=== PATIENT | male | born 1975 | race Caucasian/White ===

== ENCOUNTER 2016-09-17 01:41 | Emergency (ER) | payer SELFPAY ==
[~2016-09-17] VITALS: Ht 185.4 cm; Wt 83.9 kg
[~2016-09-17 01:41] MED LIST: ALPR0.25
[2016-09-17 02:10] LABS: Urine Bilirubin Negative (Negative); Urine Blood TRACE /uL (Negative); Urine Color Yellow (Yellow); Urine Glucose Normal (Normal); Urine Granular Cast FEW /lpf (0); Urine Ketone Negative (Negative); Urine Mucus FEW (None Seen); Urine Nitrite Negative (Negative); Urine RBC 1 /hpf (0 - 3); Urine Sperm PRESENT /hpf (None Seen); Urine Squamous Epithelial Cell FEW /hpf (<5); Urine Urobilinogen Normal (Negative); Urine pH 5.5 (5.0-8.0)
[2016-09-17 02:11] LABS: Basophils # (auto) 0 uL; Basophils % (auto) 0.6 % (0.0-2.0); CONDITION Y; Eosinophils # (auto) 0.1 uL; Eosinophils % (auto) 1.8 % (0.0-7.0); Hematocrit 49.2 % (41.0-53.0); Hemoglobin 17.1 g/dL (13.5-17.5); Lymphocytes # (auto) 2.3 uL; Lymphocytes % (auto) 28.7 % (10.0-50.0); Mean Corpuscular Hemoglobin 32.6 pg (28.0-32.0); Mean Corpuscular Hgb Conc. 34.8 g/dL (32.0-36.0); Mean Corpuscular Volume 93.8 fL (80.0-100.0); Mean Platelet Volume 7.4 fL (7.4-10.4); Monocytes # (auto) 0.8 uL; Monocytes % (auto) 10.2 % (0.0-12.0); Neutrophils # (auto) 4.6 uL; Neutrophils % (auto) 58.7 % (37.0-80.0); Platelet Count (auto) 340 10^3/uL (140-450); Red Cell Distribution Width 13.4 % (11.6-16.0); White Blood Cell 7.9 10^3/uL (4.4-10.8)
[2016-09-17 02:32] LABS: INR 0.94 (0.9-1.15); Partial Thromboplastin Time 33.2 sec (22.64-33.71); Prothrombin Time 10.2 sec (9.37-12.3)
[2016-09-17 02:37] LABS: Albumin 3.9 g/dL (3.4-5.0); Anion Gap 12 (5-15); Aspartate Aminotransferase 36 U/L (15-37); BUN/Creatinine Ratio 11.5; Blood Urea Nitrogen 9 mg/dL (7-18); Calcium 8.2 mg/dL (8.5-10.1); Carbon Dioxide 20 mmol/L (21-32); Chloride 112 mmol/L (98-107); GFR African American 141 mL/min; GFR Non-African American 117 mL/min; Glucose 102 mg/dL (74-106); Potassium 3.9 mmol/L (3.5-5.1); Sodium 144 mmol/L (136-145)
[2016-09-17 02:38] LABS: B-Type Natriuretic Peptide < 5.0 pg/mL (0-100); Temperature: 22.4 C (20.0-25.0)
[2016-09-17 02:44] LABS: Alkaline Phosphatase 78 U/L (45-117); Bilirubin, Total 0.3 mg/dL (0.2-1.0); Total Protein 8.3 g/dL (6.4-8.2)
[2016-09-17 07:15] VITALS: BP 123/76
[2016-09-17] MEDS ORDERED: SODIUM CHLORIDE 0.9% 1,000 ML IV ONE (07:42)
[2016-09-17] MEDS ORDERED: IPRATROPIUM BROM 0.5 MG/2.5ML INH SOL NEB ONE (07:45)
[2016-09-17] MEDS ORDERED: THIAMINE HCL 100 MG/ML 2ML VIAL IV ONE (07:45)
[2016-09-17] MEDS ORDERED: ALBUTEROL SULF 2.5 MG/0.5ML(0.5%) NEB SOLN NEB ONE (07:45)
[2016-09-17] MEDS ORDERED: KETOROLAC TROMETH 60MG/2ML VIAL IM ONE (07:45)
== END 2016-09-17 10:19 | disposition home or self-care (01) ==
LOC: ER 01:42
DX: F17.210 Nicotine dependence, cigarettes, uncomplicated (principal); F10.229 Alcohol dependence with intoxication, unspecified; Y90.9 Presence of alcohol in blood, level not specified; R06.02 Shortness of breath; R05 Cough
CPT/HCPCS: 36415; 71010; 80053; 80307; 80320; 81001; 83735; 83880; 84484; 85025; 85610; 85730; 93005; 94640; 96361; 96374; 99285; J3411; J7030

== ENCOUNTER 2016-10-04 13:08 | Emergency (ER) | payer SELFPAY ==
[~2016-10-04] VITALS: Ht 182.9 cm; Wt 113.4 kg
[2016-10-04] MEDS ORDERED: SODIUM CHLORIDE 0.9% 1,000 ML IV ONE (13:17)
[2016-10-04] MEDS ORDERED: LORazepam 2MG/ML-1ML VIAL IV ONE (13:30)
[2016-10-04 14:26] LABS: Albumin 3.8 g/dL (3.4-5.0); Calcium 8.1 mg/dL (8.5-10.1); Potassium 3.8 mmol/L (3.5-5.1)
[2016-10-04 14:28] LABS: BUN/Creatinine Ratio 10.8
[2016-10-04 14:30] LABS: Basophils # (auto) 0 uL; Basophils % (auto) 0.5 % (0.0-2.0); CONDITION Y; Eosinophils # (auto) 0.1 uL; Hematocrit 47.3 % (41.0-53.0); Hemoglobin 16.4 g/dL (13.5-17.5); Lymphocytes # (auto) 1.5 uL; Lymphocytes % (auto) 23.1 % (10.0-50.0); Mean Corpuscular Hemoglobin 32.8 pg (28.0-32.0); Mean Corpuscular Hgb Conc. 34.6 g/dL (32.0-36.0); Mean Corpuscular Volume 94.6 fL (80.0-100.0); Mean Platelet Volume 7.7 fL (7.4-10.4); Monocytes # (auto) 0.4 uL; Monocytes % (auto) 5.4 % (0.0-12.0); Neutrophils # (auto) 4.5 uL; Platelet Count (auto) 211 10^3/uL (140-450); Red Cell Distribution Width 14.1 % (11.6-16.0); White Blood Cell 6.6 10^3/uL (4.4-10.8)
[2016-10-04 14:31] LABS: Bilirubin, Total 0.6 mg/dL (0.2-1.0); Total Protein 7.7 g/dL (6.4-8.2)
[2016-10-04 21:01] VITALS: BP 122/68
[2016-10-04] MEDS ORDERED: THIAMINE INJ 100 MG, MULTIPLE VITAMIN 10 ML, FOLIC ACID 1 MG, MAGNESIUM SULF SDV 50% 8 ... IV SCH ×5 (22:00)
== END 2016-10-04 21:00 | disposition home or self-care (01) ==
LOC: EDBD 13:08 → ER 13:15
DX: F10.129 Alcohol abuse with intoxication, unspecified (principal); M54.9 Dorsalgia, unspecified; M54.2 Cervicalgia; F17.210 Nicotine dependence, cigarettes, uncomplicated; R42 Dizziness and giddiness; Z88.0 Allergy status to penicillin; Z88.1 Allergy status to other antibiotic agents; Z79.899 Other long term (current) drug therapy; Z90.49 Acquired absence of other specified parts of digestive tract; W18.39XA Other fall on same level, initial encounter; Y93.89 Activity, other specified; Y92.89 Other specified places as the place of occurrence of the external cause; Y99.8 Other external cause status
CPT/HCPCS: 36415; 70450; 72125; 80053; 80320; 85025; 94761; 96361; 96374; 99285; J2060; J3411; J3475; J7030

== ENCOUNTER 2017-10-28 00:42 | Emergency (ER) | payer MEDICAID ==
[~2017-10-28] VITALS: Ht 182.9 cm; Wt 95.3 kg
[2017-10-28 01:31] LABS: Basophils # (auto) 0.1 uL; Nucleated Red Blood Cells % 0.1 %
[2017-10-28 01:32] LABS: Basophils % (auto) 0.5 % (0.0-2.0); Eosinophils # (auto) 0.1 uL; Eosinophils % (auto) 0.5 % (0.0-7.0); Hematocrit 53.6 % (41.0-53.0); Hemoglobin 18.7 g/dL (13.5-17.5); Lymphocytes # (auto) 2.3 uL; Lymphocytes % (auto) 18.5 % (10.0-50.0); Mean Corpuscular Hemoglobin 32.2 pg (28.0-32.0); Mean Corpuscular Hgb Conc. 34.9 g/dL (32.0-36.0); Mean Corpuscular Volume 92.1 fL (80.0-100.0); Monocytes # (auto) 0.5 uL; Monocytes % (auto) 3.7 % (0.0-12.0); Neutrophils # (auto) 9.5 uL; Neutrophils % (auto) 76.8 % (37.0-80.0); Platelet Count (auto) 307 10^3/uL (140-450); Red Blood Cells 5.82 10^6/uL (4.5-5.90); Red Cell Distribution Width 13.5 % (11.8-14.3); White Blood Cell 12.3 10^3/uL (4.4-10.8)
[2017-10-28 01:48] LABS: Albumin 4.3 g/dL (3.4-5.0); BUN/Creatinine Ratio 14.3; Potassium 4.1 mmol/L (3.5-5.1)
[2017-10-28 01:52] LABS: Bilirubin, Total 0.5 mg/dL (0.2-1.0); Total Protein 8.8 g/dL (6.4-8.2)
[2017-10-28] MEDS ORDERED: SODIUM CHLORIDE 0.9% 3,000 ML IV ONE ×2 (02:15→03:15)
[2017-10-28] MEDS ORDERED: LORazepam 2MG/ML-1ML VIAL IV ONE (02:15)
[2017-10-28] MEDS ORDERED: SODIUM CHLORIDE 0.9% 1,000 ML IV ONE (05:45)
[2017-10-28] MEDS ORDERED: THIAMINE 100mg/ml INJ (200mg/2ml VIAL) IV ONE (08:30)
[2017-10-28] MEDS ORDERED: chlordiazePOXIDE HCL 25 MG CAP PO ONE (09:30)
[2017-10-28 10:08] VITALS: BP 98/60
== END 2017-10-28 10:55 | disposition home or self-care (01) ==
LOC: EDBD 00:42 → ER 00:46
DX: R41.82 Altered mental status, unspecified (principal); F10.120 Alcohol abuse with intoxication, uncomplicated; F17.210 Nicotine dependence, cigarettes, uncomplicated; Z90.49 Acquired absence of other specified parts of digestive tract; Z88.0 Allergy status to penicillin; Z88.1 Allergy status to other antibiotic agents
CPT/HCPCS: 36415; 80053; 80320; 82962; 85025; 96361; 96374; 96375; 99285; J2060; J3411; J7030

== ENCOUNTER 2017-11-01 14:52 | Emergency (ER) | payer MEDICAID ==
[~2017-11-01] VITALS: Ht 182.9 cm; Wt 90.7 kg
[2017-11-01] MEDS ORDERED: SODIUM CHLORIDE 0.9% 1,000 ML IVB ONE (15:30)
[2017-11-01] MEDS ORDERED: FAMOTIDINE 20 MG TAB PO ONE (15:30)
[2017-11-01] MEDS ORDERED: ALUM & MAG HYDROX-SIMETH LIQ(MAALOX) 30 ML PO ONE (15:30)
[2017-11-01] MEDS ORDERED: LORazepam 2MG/ML-1ML VIAL IV ONE (15:30)
[2017-11-01] MEDS ORDERED: DONNATAL 5ml ORAL Elix (BELLADONNA ALK-PHENOBARB) PO ONE (15:30)
[2017-11-01] MEDS ORDERED: PANTOPRAZOLE 40 MG/10 ML VIAL IV ONE (15:30)
[2017-11-01] MEDS ORDERED: ONDANSETRON HCL 4 MG/2 ML VIAL IV ONE (15:30)
[2017-11-01] MEDS ORDERED: THIAMINE INJ 100 MG, MULTIPLE VITAMIN 10 ML, FOLIC ACID 1 MG, MAGNESIUM SULF SDV 50% 8 ... IV SCH ×5 (17:00)
[2017-11-01 17:38] LABS: Basophils # (auto) 0.1 uL; Basophils % (auto) 1.1 % (0.0-2.0); Eosinophils # (auto) 0.3 uL; Eosinophils % (auto) 5.3 % (0.0-7.0); Hematocrit 51.9 % (41.0-53.0); Hemoglobin 17.6 g/dL (13.5-17.5); Lymphocytes # (auto) 1.5 uL; Lymphocytes % (auto) 31.5 % (10.0-50.0); Mean Corpuscular Hgb Conc. 33.9 g/dL (32.0-36.0); Mean Corpuscular Volume 94.3 fL (80.0-100.0); Monocytes # (auto) 0.2 uL; Monocytes % (auto) 5.2 % (0.0-12.0); Neutrophils # (auto) 2.7 uL; Neutrophils % (auto) 56.9 % (37.0-80.0); Nucleated Red Blood Cells % 0.2 %; Platelet Count (auto) 206 10^3/uL (140-450); Red Cell Distribution Width 13.6 % (11.8-14.3); White Blood Cell 4.7 10^3/uL (4.4-10.8)
[2017-11-01 18:29] LABS: Albumin 3.8 g/dL (3.4-5.0); Bilirubin, Total 0.3 mg/dL (0.2-1.0); Calcium 7.9 mg/dL (8.5-10.1); Magnesium 2.5 mg/dL (1.6-2.6); Total Protein 7.8 g/dL (6.4-8.2)
[2017-11-01 18:32] LABS: Urine WBC None Seen /hpf (0 - 3)
[2017-11-01 18:38] LABS: BUN/Creatinine Ratio 7.4
[2017-11-01 18:39] LABS: Urine Bacteria NONE SEEN /hpf (None Seen); Urine Blood Negative /uL (Negative); Urine Specific Gravity 1.005 (1.001-1.035)
[2017-11-01] MEDS ORDERED: SODIUM CHLORIDE 0.9% 1,000 ML IV ONE (18:45)
[2017-11-01 18:56] LABS: Amphetamine Screen, Urine NEGATIVE (NEGATIVE); Barbiturate Scree,Urine NEGATIVE (NEGATIVE); Benzodiazephine Screen, Urine NEGATIVE (NEGATIVE); Cannabinoid Screen, Urine NEGATIVE (NEGATIVE); Cocaine Screen, Urine NEGATIVE (NEGATIVE); Phencyclidine Screen, Urine NEGATIVE (NEGATIVE)
[2017-11-01 19:10] LABS: Opiate Scree,Urine NEGATIVE (NEGATIVE)
[2017-11-01 20:45] VITALS: BP 143/95
[2017-11-01] MEDS ORDERED: SODIUM CHLORIDE 0.9% 500 ML IV ONE (22:00)
[2017-11-01] MEDS ORDERED: LORazepam 0.5 MG TAB PO ONE (23:45)
[2017-11-02] MEDS ORDERED: LORazepam 0.5 MG TAB PO ONE (00:30)
== END 2017-11-02 00:25 | disposition home or self-care (01) ==
LOC: EDBD 14:52 → ER 14:52
DX: F10.129 Alcohol abuse with intoxication, unspecified (principal); E86.0 Dehydration; F41.1 Generalized anxiety disorder; F17.210 Nicotine dependence, cigarettes, uncomplicated
CPT/HCPCS: 36415; 51702; 71045; 80053; 80307; 80320; 81001; 83690; 83735; 85025; 93005; 96365; 96366; 96375; 99285; C9113; J2060; J2405; J3411; J3475; J7030; 96361

== ENCOUNTER 2018-09-29 22:41 | Emergency (ER) | payer SELFPAY ==
[~2018-09-29] VITALS: Ht 190.5 cm; Wt 104.3 kg
[2018-09-29] MEDS ORDERED: SODIUM CHLORIDE 0.9% 1,000 ML IV ONE (23:15)
[2018-09-29 23:36] LABS: Monocytes # (auto) 0.4 uL; Neutrophils # (auto) 4.3 uL; Nucleated Red Blood Cells % 0.2 %
[2018-09-29 23:37] LABS: Basophils # (auto) 0 uL; Basophils % (auto) 0.6 % (0.0-2.0); Eosinophils # (auto) 0.3 uL; Eosinophils % (auto) 3.3 % (0.0-7.0); Hematocrit 50.6 % (41.0-53.0); Hemoglobin 17.9 g/dL (13.5-17.5); Lymphocytes # (auto) 2.8 uL; Lymphocytes % (auto) 35.6 % (10.0-50.0); Mean Corpuscular Hemoglobin 32.4 pg (28.0-32.0); Mean Corpuscular Hgb Conc. 35.3 g/dL (32.0-36.0); Monocytes % (auto) 5.8 % (0.0-12.0); Neutrophils % (auto) 54.7 % (37.0-80.0); Platelet Count (auto) 236 10^3/uL (140-450); Red Cell Distribution Width 14.6 % (11.8-14.3); White Blood Cell 7.8 10^3/uL (4.4-10.8)
[2018-09-29] MEDS ORDERED: ONDANSETRON HCL 4 MG/2 ML VIAL IV ONE (23:45)
[2018-09-29] MEDS ORDERED: LORazepam 2MG/ML-1ML VIAL IV ONE (23:45)
[2018-09-29] MEDS: FOLIC ACID 1 MG, MULTIPLE VITAMIN 10 ML, MAGNESIUM SULF SDV 50% 8 MEQ, THIAMINE INJ 100... INJ SCH ×5 (23:51)
[2018-09-29 23:55] LABS: Salicylate 1.8 mg/dL (2.8-20.0)
[2018-09-29 23:56] LABS: Acetaminophen < 2.0 ug/mL (10-30)
[2018-09-29 23:57] LABS: Albumin 3.9 g/dL (3.4-5.0); BUN/Creatinine Ratio 8.4; Magnesium 2.4 mg/dL (1.6-2.6); Potassium 3.4 mmol/L (3.5-5.1)
[2018-09-30] LABS: Bilirubin, Total 0.4 mg/dL (0.2-1.0); Total Protein 8.2 g/dL (6.4-8.2)
[2018-09-30 00:18] LABS: Blood Alcohol 446.5 mg/dL (0-5)
[2018-09-30] MEDS ORDERED: SODIUM CHLORIDE 0.9% 1,000 ML IV ONE ×2 (01:45→05:45)
[2018-09-30 02:07] LABS: Urine Bacteria NONE SEEN /hpf (None Seen); Urine Blood Negative /uL (Negative); Urine Specific Gravity 1.006 (1.001-1.035); Urine WBC <1 /hpf (0 - 3)
[2018-09-30 02:15] LABS: Amphetamine Screen, Urine NEGATIVE (NEGATIVE); Barbiturate Scree,Urine NEGATIVE (NEGATIVE); Cannabinoid Screen, Urine NEGATIVE (NEGATIVE); Cocaine Screen, Urine NEGATIVE (NEGATIVE); Opiate Scree,Urine NEGATIVE (NEGATIVE); Phencyclidine Screen, Urine NEGATIVE (NEGATIVE)
[2018-09-30 02:23] LABS: Benzodiazephine Screen, Urine NEGATIVE (NEGATIVE)
[2018-09-30] MEDS ORDERED: ALUM & MAG HYDROX-SIMETH LIQ(MAALOX) 30 ML PO ONE (02:45)
[2018-09-30] MEDS ORDERED: LORazepam 2MG/ML-1ML VIAL IV ONE ×2 (03:00→11:45)
[2018-09-30] MEDS ORDERED: POTASSIUM EFFERVESENT TAB 25 MEQ PO ONE (09:00)
[2018-09-30] MEDS: FOLIC ACID 1 MG, MULTIPLE VITAMIN 10 ML, MAGNESIUM SULF SDV 50% 8 MEQ, THIAMINE INJ 100... INJ SCH ×5 (09:44)
[2018-09-30] MEDS ORDERED: FOLIC ACID 1 MG, MULTIPLE VITAMIN 10 ML, MAGNESIUM SULF SDV 50% 8 MEQ, THIAMINE INJ 100... INJ SCH ×5 (12:00)
[2018-09-30 14:06] VITALS: BP 134/92
== END 2018-09-30 15:40 | disposition home or self-care (01) ==
LOC: ER 22:41
DX: K70.30 Alcoholic cirrhosis of liver without ascites (principal); R10.9 Unspecified abdominal pain; F17.210 Nicotine dependence, cigarettes, uncomplicated; Z90.49 Acquired absence of other specified parts of digestive tract
CPT/HCPCS: 36415; 71045; 80053; 80307; 80320; 80329; 81001; 83735; 84484; 85025; 93005; 94761; 96365; 96366; 96375; 96376; 99284; J2060; J2405; J3411; J3475; J7030

== ENCOUNTER 2018-12-14 22:29 | Emergency (ER) | payer SELFPAY ==
[~2018-12-14] VITALS: Ht 182.9 cm; Wt 90.7 kg
[2018-12-14] MEDS ORDERED: SODIUM CHLORIDE 0.9% 1,000 ML IVB ONE (22:56)
[2018-12-14] MEDS ORDERED: THIAMINE 100mg/ml INJ (200mg/2ml VIAL) IV ONE (23:00)
[2018-12-14] MEDS ORDERED: LORazepam 2MG/ML-1ML VIAL IM ONE (23:15)
[2018-12-15 00:52] LABS: Basophils # (auto) 0.1 uL; Basophils % (auto) 0.8 % (0.0-2.0); Eosinophils # (auto) 0.3 uL; Eosinophils % (auto) 3.3 % (0.0-7.0); Hematocrit 52.8 % (41.0-53.0); Hemoglobin 18.2 g/dL (13.5-17.5); Lymphocytes # (auto) 2.1 uL; Lymphocytes % (auto) 27.7 % (10.0-50.0); Mean Corpuscular Hemoglobin 32.9 pg (28.0-32.0); Mean Corpuscular Hgb Conc. 34.4 g/dL (32.0-36.0); Mean Corpuscular Volume 95.7 fL (80.0-100.0); Monocytes # (auto) 0.6 uL; Monocytes % (auto) 7.9 % (0.0-12.0); Neutrophils # (auto) 4.6 uL; Neutrophils % (auto) 60.3 % (37.0-80.0); Nucleated Red Blood Cells % 0.1 %; Platelet Count (auto) 240 10^3/uL (140-450); Red Blood Cells 5.52 10^6/uL (4.5-5.90); Red Cell Distribution Width 15.5 % (11.8-14.3); White Blood Cell 7.6 10^3/uL (4.4-10.8)
[2018-12-15 01:14] LABS: Albumin 4.1 g/dL (3.4-5.0); Calcium 8.3 mg/dL (8.5-10.1); Potassium 3.7 mmol/L (3.5-5.1)
[2018-12-15 01:27] LABS: Bilirubin, Total 0.3 mg/dL (0.2-1.0); Total Protein 8.2 g/dL (6.4-8.2)
[2018-12-15 01:40] LABS: BUN/Creatinine Ratio 13.4
[2018-12-15 06:01] VITALS: BP 132/93
[2018-12-15] MEDS ORDERED: FLUORESCEIN SOD 1 MG TEST STRIP LEFTEYE ONE (09:30)
[2018-12-15] MEDS ORDERED: TETRACAINE HCL 0.5% OPTH(EYE) SOLN 4ML LEFTEYE ONE (09:45)
== END 2018-12-15 10:15 | disposition home or self-care (01) ==
LOC: ER 22:29 → EDBD 22:29 → ER 12-15 10:15
DX: F10.129 Alcohol abuse with intoxication, unspecified (principal); F17.210 Nicotine dependence, cigarettes, uncomplicated; Y90.8 Blood alcohol level of 240 mg/100 ml or more
CPT/HCPCS: 36415; 80053; 80320; 85025; 94761; 96372; 99283; J2060; J3411

== ENCOUNTER 2018-12-15 14:34 | Emergency (ER) | payer SELFPAY ==
[~2018-12-15] VITALS: Ht 182.9 cm; Wt 90.7 kg
[2018-12-15] MEDS: SODIUM CHLORIDE 0.9% 1,000 ML IVB ONE ×2 (15:01→18:23)
[2018-12-15] MEDS: THIAMINE 100mg/ml INJ (200mg/2ml VIAL) IV ONE ×2 (15:15→18:23)
[2018-12-15 15:50] LABS: Basophils # (auto) 0 uL; Basophils % (auto) 0.2 % (0.0-2.0); Eosinophils # (auto) 0.1 uL; Nucleated Red Blood Cells % 0.1 %; Red Cell Distribution Width 15.8 % (11.8-14.3)
[2018-12-15 15:58] LABS: Eosinophils % (auto) 0.6 % (0.0-7.0); Hemoglobin 18.6 g/dL (13.5-17.5); Lymphocytes # (auto) 1.7 uL; Lymphocytes % (auto) 12.2 % (10.0-50.0); Mean Corpuscular Hemoglobin 32.4 pg (28.0-32.0); Mean Corpuscular Hgb Conc. 33.2 g/dL (32.0-36.0); Mean Corpuscular Volume 97.8 fL (80.0-100.0); Monocytes % (auto) 7.2 % (0.0-12.0); Neutrophils # (auto) 11.4 uL; Neutrophils % (auto) 79.8 % (37.0-80.0); Platelet Count (auto) 245 10^3/uL (140-450); Red Blood Cells 5.74 10^6/uL (4.5-5.90); White Blood Cell 14.3 10^3/uL (4.4-10.8)
[2018-12-15 16:01] LABS: Hematocrit 56.1 % (41.0-53.0)
[2018-12-15 16:11] LABS: Acetaminophen < 2.0 ug/mL (10-30); Salicylate 4.2 mg/dL (2.8-20.0)
[2018-12-15 17:08] LABS: Blood Alcohol 320.8 mg/dL (0-5)
[2018-12-15] MEDS ORDERED: FOLIC ACID 1 MG, MULTIPLE VITAMIN 10 ML, MAGNESIUM SULF SDV 50% 8 MEQ, THIAMINE INJ 100... INJ ONE ×5 (18:45)
[2018-12-15 19:53] VITALS: BP 123/76
== END 2018-12-15 21:49 | disposition home or self-care (01) ==
LOC: EDBD 14:34 → ER 14:34
DX: F10.129 Alcohol abuse with intoxication, unspecified (principal); E86.0 Dehydration; Y90.8 Blood alcohol level of 240 mg/100 ml or more
CPT/HCPCS: 36415; 70450; 80320; 80329; 84484; 85025; 96365; 96366; 96375; 99284; J3411; J3475; J7030

== ENCOUNTER 2018-12-23 18:51 | Emergency (ER) | payer MEDICAID ==
[~2018-12-23] VITALS: Ht 193 cm; Wt 108.9 kg
[2018-12-23 19:51] LABS: Mean Corpuscular Volume 95.4 fL (80.0-100.0); White Blood Cell 5.6 10^3/uL (4.4-10.8)
[2018-12-23 19:53] LABS: Hematocrit 53.9 % (41.0-53.0); Mean Corpuscular Hemoglobin 33.5 pg (28.0-32.0); Mean Corpuscular Hgb Conc. 35.2 g/dL (32.0-36.0); Platelet Count (auto) 235 10^3/uL (140-450); Red Blood Cells 5.65 10^6/uL (4.5-5.90); Red Cell Distribution Width 15.6 % (11.8-14.3)
[2018-12-23 19:57] LABS: Band Neutrophils % (manual) 0; Basophils % (manual) 0 (0.0-2.0); Blast Cells 0; Metamyelocytes % 0; Myelocytes % 0; Promyelocytes % 0; Reactive Lymphocytes 0
[2018-12-23 20:09] LABS: Eosinophils % (manual) 3 (0-7); Lymphocytes % (manual) 32 (10.0-50.0); Monocytes % (manual) 9 (0-12)
[2018-12-23 20:11] LABS: Albumin 3.9 g/dL (3.4-5.0); BUN/Creatinine Ratio 12.2; Calcium 8.3 mg/dL (8.5-10.1)
[2018-12-23 20:23] LABS: Bilirubin, Total 0.5 mg/dL (0.2-1.0); Total Protein 7.9 g/dL (6.4-8.2)
[2018-12-23 20:24] LABS: Salicylate 4.1 mg/dL (2.8-20.0)
[2018-12-23 20:25] LABS: Acetaminophen < 2.0 ug/mL (10-30)
[2018-12-23] MEDS ORDERED: LORazepam 2MG/ML-1ML VIAL IV ONE ×2 (20:45)
[2018-12-23] MEDS ORDERED: FOLIC ACID 1 MG, MULTIPLE VITAMIN 10 ML, MAGNESIUM SULF SDV 50% 8 MEQ, THIAMINE INJ 100... INJ ONE ×5 (20:45)
[2018-12-23] MEDS ORDERED: diphenhdrAMINE HCL 50 MG/1 ML VL IV ONE ×2 (20:45)
[2018-12-23] MEDS ORDERED: HALOPERIDOL LACTATE 5 MG/ML INJ VIAL IM ONE (20:45)
[2018-12-23] MEDS ORDERED: LORazepam 2MG/ML-1ML VIAL ONE (20:47)
[2018-12-23] MEDS ORDERED: diphenhdrAMINE HCL 50 MG/1 ML VL ONE (20:47)
[2018-12-24 04:40] LABS: Amphetamine Screen, Urine NEGATIVE (NEGATIVE); Barbiturate Scree,Urine NEGATIVE (NEGATIVE); Benzodiazephine Screen, Urine NEGATIVE (NEGATIVE); Cannabinoid Screen, Urine NEGATIVE (NEGATIVE); Cocaine Screen, Urine NEGATIVE (NEGATIVE); Phencyclidine Screen, Urine NEGATIVE (NEGATIVE)
[2018-12-24 04:49] LABS: Opiate Scree,Urine NEGATIVE (NEGATIVE)
[2018-12-24 06:00] VITALS: BP 121/82
== END 2018-12-24 06:11 | disposition home or self-care (01) ==
LOC: EDBD 18:51 → ER 18:51
DX: G92 Toxic encephalopathy (principal); F10.129 Alcohol abuse with intoxication, unspecified; R41.82 Altered mental status, unspecified; F17.210 Nicotine dependence, cigarettes, uncomplicated; Z88.6 Allergy status to analgesic agent; Y90.8 Blood alcohol level of 240 mg/100 ml or more; Z88.8 Allergy status to other drugs, medicaments and biological substances; Z90.49 Acquired absence of other specified parts of digestive tract
CPT/HCPCS: 36415; 80053; 80307; 80320; 80329; 85007; 85027; 96365; 96372; 96375; 99283; J1200; J1630; J2060; J3411; J3475; J7030

== ENCOUNTER 2018-12-24 16:01 | Inpatient (IN) | payer MEDICAID ==
[~2018-12-24] VITALS: Ht 188 cm; Wt 105.7 kg
[2018-12-24] MEDS ORDERED: ONDANSETRON HCL 4 MG/2 ML VIAL ONE (16:35)
[2018-12-24] MEDS ORDERED: SODIUM CHLORIDE 0.9% 2,000 ML IV ONE (16:45)
[2018-12-24] MEDS ORDERED: ONDANSETRON HCL 4 MG/2 ML VIAL IV ONE (16:45)
[2018-12-24] MEDS ORDERED: LORazepam 2MG/ML-1ML VIAL IV ONE ×2 (16:45→20:15)
[2018-12-24 16:59] LABS: Basophils # (auto) 0 uL; Basophils % (auto) 0.6 % (0.0-2.0); Eosinophils # (auto) 0.1 uL; Eosinophils % (auto) 1.3 % (0.0-7.0); Hematocrit 45.8 % (41.0-53.0); Hemoglobin 15.9 g/dL (13.5-17.5); Lymphocytes # (auto) 1.2 uL; Lymphocytes % (auto) 17.8 % (10.0-50.0); Mean Corpuscular Hemoglobin 33.4 pg (28.0-32.0); Mean Corpuscular Hgb Conc. 34.7 g/dL (32.0-36.0); Mean Corpuscular Volume 96.1 fL (80.0-100.0); Monocytes # (auto) 0.6 uL; Monocytes % (auto) 9.3 % (0.0-12.0); Neutrophils # (auto) 4.9 uL; Platelet Count (auto) 199 10^3/uL (140-450); Red Blood Cells 4.77 10^6/uL (4.5-5.90); Red Cell Distribution Width 15.3 % (11.8-14.3)
[2018-12-24 17:16] LABS: Calcium 8.2 mg/dL (8.5-10.1); Magnesium 1.8 mg/dL (1.6-2.6); Potassium 3.9 mmol/L (3.5-5.1)
[2018-12-24 17:22] LABS: Albumin 3.7 g/dL (3.4-5.0); BUN/Creatinine Ratio 11.8; Bilirubin, Total 1.4 mg/dL (0.2-1.0); Total Protein 7.5 g/dL (6.4-8.2)
[2018-12-24] MEDS ORDERED: PANTOPRAZOLE 40 MG/10 ML VIAL INJ IV ONE (19:45)
[2018-12-24] MEDS ORDERED: SODIUM CHLORIDE 0.9% 1,000 ML IV ONE (20:15)
[2018-12-24] MEDS ORDERED: TEMAZEPAM 15 MG CAP PO PRN (21:45)
[2018-12-24] MEDS ORDERED: ACETAMINOPHEN 325 MG TAB PO PRN (21:45)
[2018-12-24] MEDS ORDERED: MORPHINE SULF INJ 2 MG/ML SYRINGE 1ML IV PRN (22:15)
[2018-12-24] MEDS ORDERED: NITROGLYCERIN 0.4 MG SL TAB SL PRN (22:15)
[2018-12-25] MEDS: FAMOTIDINE 20 MG TAB PO SCH ×2 (01:53→12:46)
[2018-12-25] MEDS: SODIUM CHLORIDE 0.9% 1,000 ML IV SCH ×3 (01:53→22:45)
[2018-12-25 08:53] LABS: Calcium 7.5 mg/dL (8.5-10.1); Potassium 3.6 mmol/L (3.5-5.1)
--- NOTE | 2018-12-25 09:50 | NUR ---
Telemetry admit from ER HARJINDERYESSENIA admitted to Telemetry unit after SBAR received. Patient oriented to Giovana Hu, primary RN, unit, room, bed, and unit policies regarding patient care and visiting hours. Patient now on continuous telemetry monitoring, tele box # 13 and telemetry reading on arrival to unit is SINUS RHYTHM AT 78BPM. Patient weighed by bedscale and encouraged to call if they need something. All questions and concerns addressed, patient verbalized understanding. Note: PT IS AWAKE BUT DROWSY, ALERT ORIENTED X3, NO SIGNS OF DISTRESS AT THIS TIME.
[2018-12-25 10:00] VITALS: BP 137/74
[2018-12-25] MEDS: chlordiazePOXIDE HCL 25 MG CAP PO PRN ×2 (12:46→18:31)
[2018-12-25 13:00] VITALS: BP 124/74
--- NOTE | 2018-12-25 13:03 | NUR ---
[facility] SWAB SENT TO LAB
--- NOTE | 2018-12-25 13:34 | NUR ---
PT SEEN BY DR. GRAY
[2018-12-25] MEDS: FOLIC ACID 1 MG, MULTIPLE VITAMIN 10 ML, MAGNESIUM SULF SDV 50% 8 MEQ, THIAMINE INJ 100... INJ SCH ×5 (13:35)
[2018-12-25] MEDS: ONDANSETRON HCL 4 MG/2 ML VIAL IV PRN ×2 (13:36→18:32)
[2018-12-25 13:55] LABS: Alcohol, Urine < 3.0 mg/dL (0-5); Amphetamine Screen, Urine NEGATIVE (NEGATIVE); Barbiturate Scree,Urine NEGATIVE (NEGATIVE); Benzodiazephine Screen, Urine NEGATIVE (NEGATIVE); Cannabinoid Screen, Urine NEGATIVE (NEGATIVE); Cocaine Screen, Urine NEGATIVE (NEGATIVE); Opiate Scree,Urine NEGATIVE (NEGATIVE); Phencyclidine Screen, Urine NEGATIVE (NEGATIVE)
[2018-12-25] MEDS ORDERED: NICOTINE 14 MG/24HR TOPICAL PATCH TD ONE (15:15)
[2018-12-25 17:00] VITALS: BP 139/86
--- NOTE | 2018-12-25 17:52 | NUR ---
PT SIGNED AMA TO GO OUTSIDE TO SMOKE, PT EDUCATED ON THE RISK OF GOING OUTSIDE TO SMOKE. PT REMOVED HIS NICOTINE PATCH. WILL CONTINUE TO MONITOR.
[2018-12-25] MEDS ORDERED: PANTOPRAZOLE 40 MG/10 ML VIAL INJ IV ONE (18:00)
[2018-12-25] MEDS: LORazepam 2MG/ML-1ML VIAL IV PRN (19:48)
[2018-12-25 20:00] VITALS: BP 128/87
--- NOTE | 2018-12-25 20:00 | NUR ---
Opening Shift Note Assumed care of patient, awake and alert. No S/S of SOB or pain. Patient noted to be anxious. Medicated with Ativan 1 mg IVP. at bedside. Instructed on POC and to call for assist PRN, will continue to monitor for changes Q1hr and PRN. Bed in low position. Call light in reach.
[2018-12-25 22:21] VITALS: BP 128/87
[2018-12-26] MEDS: LORazepam 2MG/ML-1ML VIAL IV PRN ×3 (01:13→17:22)
--- NOTE | 2018-12-26 06:00 | NUR ---
Patient impulsively got out of bed and yanked his IV tubing apart. Large amount of blood noted at bedside, bathroom wall, floor and sink. Patient stated he was determined not to have another episode of bowel incontinence. Patient cleaned up, IV tubing replaced. Patient was advised to activate his call light when he feels the urge to defecate. Urinal placed in his reach. Patient verbalized understanding. Patient medicated with Librium as ordered.
[2018-12-26 06:01] VITALS: BP 133/92
[2018-12-26] MEDS: chlordiazePOXIDE HCL 25 MG CAP PO PRN ×2 (06:01→15:33)
[2018-12-26 07:29] LABS: Basophils # (auto) 0 uL; Basophils % (auto) 0.6 % (0.0-2.0); Eosinophils # (auto) 0.3 uL; Eosinophils % (auto) 6.3 % (0.0-7.0); Hematocrit 42.4 % (41.0-53.0); Hemoglobin 14.9 g/dL (13.5-17.5); Lymphocytes # (auto) 0.9 uL; Lymphocytes % (auto) 22.2 % (10.0-50.0); Mean Corpuscular Hemoglobin 33.8 pg (28.0-32.0); Mean Corpuscular Hgb Conc. 35.1 g/dL (32.0-36.0); Mean Corpuscular Volume 96.3 fL (80.0-100.0); Monocytes # (auto) 0.4 uL; Monocytes % (auto) 10.4 % (0.0-12.0); Neutrophils # (auto) 2.6 uL; Neutrophils % (auto) 60.5 % (37.0-80.0); Nucleated Red Blood Cells % 0.1 %; Platelet Count (auto) 174 10^3/uL (140-450); Red Cell Distribution Width 15.4 % (11.8-14.3); White Blood Cell 4.3 10^3/uL (4.4-10.8)
[2018-12-26 08:29] LABS: BUN/Creatinine Ratio 6.1; Bilirubin, Total 0.8 mg/dL (0.2-1.0); Calcium 8.1 mg/dL (8.5-10.1); Potassium 3.4 mmol/L (3.5-5.1)
[2018-12-26 08:30] LABS: Albumin 3.1 g/dL (3.4-5.0); Magnesium 2.1 mg/dL (1.6-2.6); Total Protein 6.6 g/dL (6.4-8.2)
[2018-12-26 09:00] VITALS: BP 112/86
--- NOTE | 2018-12-26 09:34 | NUR ---
Patient awake and alert, wants to go out and smoke, ambulating independently. No s/s of distress at this time. Patient educated regarding AMA policy. He agrees. Will await patient return.
[2018-12-26] MEDS: NICOTINE 14 MG/24HR TOPICAL PATCH TD SCH (10:00)
[2018-12-26] MEDS: PANTOPRAZOLE 40 MG/10 ML VIAL INJ IV SCH (10:06)
[2018-12-26] MEDS: SODIUM CHLORIDE 0.9% 1,000 ML IV SCH ×2 (11:54→23:45)
[2018-12-26] MEDS: FOLIC ACID 1 MG, MULTIPLE VITAMIN 10 ML, MAGNESIUM SULF SDV 50% 8 MEQ, THIAMINE INJ 100... INJ SCH ×5 (11:54)
[2018-12-26 13:00] VITALS: BP 120/92
[2018-12-26] MEDS ORDERED: POTASSIUM EFFERVESENT TAB 25 MEQ PO ONE (14:00)
[2018-12-26 14:41] LABS: INR 0.95 (0.9-1.15)
[2018-12-26 17:00] VITALS: BP 145/96
[2018-12-26 20:00] VITALS: BP 128/87
--- NOTE | 2018-12-26 20:00 | NUR ---
Patient currently outside smoking cigarettes. Will assess upon his return to his room.
--- NOTE | 2018-12-26 20:30 | NUR ---
Patient received awake no distress noted. Patient states "I just want to remain sedated". Patient noted disconnecting IV tubing from his left hand. Education provided regarding the importance of calling nursing to handle all issues concerning his IVs. Patient verbalized understanding. Patient lying in bed. Bed in low position and call light in reach.
[2018-12-26 22:00] VITALS: BP 142/88
--- NOTE | 2018-12-26 22:16 | NUR ---
22 gauge IV DC'd from left hand due to constant repositioning of left hand for the patency of his IV Fluids. IV removed with sterile technique, catheter fully intact. Pressure dressing applied to site. Patient tolerated procedure well. New IV started to left forearm with 22 gauge angiocath after second attempt.
[2018-12-27] MEDS: LORazepam 2MG/ML-1ML VIAL IV PRN (01:49)
[2018-12-27 05:00] VITALS: BP 98/56
--- NOTE | 2018-12-27 06:32 | NUR ---
Closing note: Patient resting comfortably. No distress noted.
--- NOTE | 2018-12-27 08:20 | NUR ---
Opening Note Assumed care of patient, he awakens to his name and slight touch. Patient was sleeping soundly. No s/s of distress. He is A& O x4, POC discussed with patient. He is comfortable at this time. Bed is in lowest, locked position, call light within reach, bed rails up x2, will continue to monitor Q1h and PRN.
--- NOTE | 2018-12-27 08:50 | NUR ---
Dr. Nelson at bedside. Okay to discharge patient home, no [employer] media and crm needed at this time. Will discharge per orders.
[2018-12-27 09:00] VITALS: BP 129/87
[2018-12-27] MEDS: NICOTINE 14 MG/24HR TOPICAL PATCH TD SCH (10:00)
--- NOTE | 2018-12-27 10:20 | NUR ---
Patient outside to smoke.
--- NOTE | 2018-12-27 10:45 | NUR ---
Patient returned from smoking. Patient reminded of [facility] smoking policy. Will continue to monitor patient.
[2018-12-27] MEDS: PANTOPRAZOLE 40 MG/10 ML VIAL INJ IV SCH (11:16)
[2018-12-27] MEDS: FOLIC ACID 1 MG, MULTIPLE VITAMIN 10 ML, MAGNESIUM SULF SDV 50% 8 MEQ, THIAMINE INJ 100... INJ SCH ×5 (12:00)
[2018-12-27] MEDS: SODIUM CHLORIDE 0.9% 1,000 ML IV SCH (12:15)
[2018-12-27 13:00] VITALS: BP 135/89
--- NOTE | 2018-12-27 13:35 | NUR ---
Discharge instructions given as ordered. Encourage to follow up with PMD as instructed. All questions and concerns addressed. Patient verbalized understanding. Medication reconciliation form completed and copy given to patient. IV removed with catheter intact, pressure dressing applied. Telemetry unit returned to ICU. Patient ambulated to vehicle with all personal belongings, accompanied by staff and family member. No distress noted at time of departure.
[2018-12-28 09:50] LABS: Hepatitis B Surface Antibody Negative
[2018-12-28 10:22] LABS: Hepatitis A Total Antibody Negative
[2018-12-28 11:45] LABS: Hepatitis B Surface Antigen Negative (Negative); Hepatitis C Antibody Negative (Negative)
[2018-12-28 11:46] LABS: Hepatitis B Core Total AB Negative
--- NOTE | 2018-12-28 12:51 | NUR ---
Discharge planning per SS consult, did not received a call regarding referral. Patient discharged. Unable to provide resources.
== END 2018-12-27 13:35 | disposition home or self-care (01) | DRG 775 ==
LOC: ER 16:06 → TELE 16:07 → TELE-EAST 12-25 10:03
PROVIDERS: ADMIT Nurse Practitioner; ATTEND Internal Medicine
DX: F10.231 Alcohol dependence with withdrawal delirium (principal); K70.30 Alcoholic cirrhosis of liver without ascites; E86.0 Dehydration; Z88.8 Allergy status to other drugs, medicaments and biological substances
CPT/HCPCS: 36415; 71045; 76705; 80048; 80053; 80307; 80320; 82150; 83036; 83690; 83735; 84443; 85025; 85610; 86704; 86706; 86708; 86803; 87081; 87340; 93005; 94761; 96361; 96374; 96375; C9113; G0378; J2405

== ENCOUNTER 2019-07-13 04:55 | Emergency (ER) | payer MEDICAID ==
[~2019-07-13] VITALS: Ht 162.6 cm; Wt 90.7 kg
[2019-07-13] MEDS ORDERED: SODIUM CHLORIDE 0.9% 1,000 ML IV ONE ×3 (05:15→06:33)
[2019-07-13 06:16] LABS: Basophils # (auto) 0 10 ^3/uL (0-0.2); Basophils % (auto) 0.2 % (0.0-2.0); Eosinophils # (auto) 0 10 ^3/uL (0-0.8); Eosinophils % (auto) 0.1 % (0.0-7.0); Hematocrit 53.8 % (41.0-53.0); Hemoglobin 18.5 g/dL (13.5-17.5); Lymphocytes # (auto) 0.5 10 ^3/uL (0.4-5.4); Lymphocytes % (auto) 4.9 % (10.0-50.0); Mean Corpuscular Hgb Conc. 34.5 g/dL (32.0-36.0); Mean Corpuscular Volume 89.9 fL (80.0-100.0); Monocytes # (auto) 0.7 10 ^3/uL (0-1.3); Monocytes % (auto) 6.8 % (0.0-12.0); Neutrophils # (auto) 9.5 10 ^3/uL (1.6-8.6); Nucleated Red Blood Cells % 0.4 %; Platelet Count (auto) 152 10^3/uL (140-450); Red Blood Cells 5.98 10^6/uL (4.5-5.90); Red Cell Distribution Width 14.7 % (11.8-14.3); White Blood Cell 10.8 10^3/uL (4.4-10.8)
[2019-07-13 06:34] LABS: Albumin 4.3 g/dL (3.4-5.0); Calcium 8.3 mg/dL (8.5-10.1); Potassium 4.3 mmol/L (3.5-5.1)
[2019-07-13 06:39] LABS: Bilirubin, Total 0.8 mg/dL (0.2-1.0); Total Protein 9.3 g/dL (6.4-8.2)
[2019-07-13] MEDS ORDERED: THIAMINE 100mg/ml INJ (200mg/2ml VIAL) IV ONE (06:45)
[2019-07-13] MEDS ORDERED: ONDANSETRON HCL 4 MG/2 ML VIAL IV ONE (07:00)
[2019-07-13] MEDS ORDERED: FOLIC ACID 1 MG, MULTIPLE VITAMIN 10 ML, MAGNESIUM SULF SDV 50% 8 MEQ, THIAMINE INJ 100... INJ ONE ×5 (08:00)
[2019-07-13] MEDS ORDERED: chlordiazePOXIDE HCL 5 MG CAP PO ONE (09:15)
[2019-07-13 11:33] VITALS: BP 135/60
== END 2019-07-13 13:04 | disposition home or self-care (01) ==
LOC: EDBD 04:55 → ER 04:55
DX: F10.129 Alcohol abuse with intoxication, unspecified (principal); E87.1 Hypo-osmolality and hyponatremia; E86.0 Dehydration; E87.2 Acidosis; R74.8 Abnormal levels of other serum enzymes; E87.8 Other disorders of electrolyte and fluid balance, not elsewhere classified; R00.0 Tachycardia, unspecified; F17.210 Nicotine dependence, cigarettes, uncomplicated; Z90.49 Acquired absence of other specified parts of digestive tract; Z79.899 Other long term (current) drug therapy; Z88.8 Allergy status to other drugs, medicaments and biological substances; Y90.8 Blood alcohol level of 240 mg/100 ml or more
CPT/HCPCS: 36415; 80053; 80320; 85025; 93005; 96361; 96365; 96375; 99284; J2405; J3411; J3475; J7030

== ENCOUNTER 2019-11-18 17:16 | Emergency (ER) | payer MEDICAID ==
[~2019-11-18] VITALS: Ht 182.9 cm; Wt 100.2 kg
[2019-11-18] MEDS ORDERED: SODIUM CHLORIDE 0.9% 1,000 ML IVB ONE (17:45)
[2019-11-18 18:20] LABS: Basophils # (auto) 0.1 10 ^3/uL (0-0.2); Basophils % (auto) 0.7 % (0.0-2.0); Hemoglobin 18.8 g/dL (13.5-17.5); Lymphocytes # (auto) 2.9 10 ^3/uL (0.4-5.4); Mean Corpuscular Volume 92.4 fL (80.0-100.0); Monocytes # (auto) 0.4 10 ^3/uL (0-1.3); White Blood Cell 10.7 10^3/uL (4.4-10.8)
[2019-11-18 18:24] LABS: Eosinophils % (auto) 1.4 % (0.0-7.0); Monocytes % (auto) 3.7 % (0.0-12.0); Neutrophils % (auto) 67.2 % (37.0-80.0)
[2019-11-18 18:25] LABS: Eosinophils # (auto) 0.2 10 ^3/uL (0-0.8); Hematocrit 53.8 % (41.0-53.0); Mean Corpuscular Hemoglobin 32.3 pg (28.0-32.0); Neutrophils # (auto) 7.2 10 ^3/uL (1.6-8.6); Nucleated Red Blood Cells % 0.1 %; Red Blood Cells 5.82 10^6/uL (4.5-5.90)
[2019-11-18 18:26] LABS: Platelet Count (auto) 385 10^3/uL (140-450); Red Cell Distribution Width 13.9 % (11.8-14.3)
[2019-11-18] MEDS ORDERED: LORazepam 2MG/ML-1ML VIAL IV ONE (18:30)
[2019-11-18] MEDS ORDERED: LORazepam 2MG/ML-1ML VIAL ONE (18:31)
[2019-11-18 18:38] LABS: Albumin 4.3 g/dL (3.4-5.0); Calcium 9.5 mg/dL (8.5-10.1); Potassium 4.2 mmol/L (3.5-5.1)
[2019-11-18 18:44] LABS: Bilirubin, Total 0.6 mg/dL (0.2-1.0); Total Protein 8.4 g/dL (6.4-8.2)
[2019-11-19 00:16] LABS: Urine Bacteria FEW /hpf (None Seen); Urine Blood Negative /uL (Negative); Urine Hyaline Cast FEW /lpf (0 - 2); Urine Mucus FEW (None Seen); Urine Specific Gravity 1.014 (1.001-1.035); Urine WBC <1 /hpf (0 - 3)
[2019-11-19] MEDS ORDERED: SODIUM CHLORIDE 0.9% 1,000 ML IV ONE (01:30)
[2019-11-19 10:50] VITALS: BP 129/84
== END 2019-11-19 01:23 | disposition home or self-care (01) ==
LOC: ER 17:16 → EDBD 17:16 → ER 11-19 01:23
DX: G92 Toxic encephalopathy (principal); F10.129 Alcohol abuse with intoxication, unspecified; R41.82 Altered mental status, unspecified; F17.210 Nicotine dependence, cigarettes, uncomplicated; Z90.49 Acquired absence of other specified parts of digestive tract; Y90.8 Blood alcohol level of 240 mg/100 ml or more
CPT/HCPCS: 36415; 80053; 80320; 81001; 85025; 93005; 96361; 96374; 99285; J2060; J7030

== ENCOUNTER 2020-07-20 13:49 | Emergency (ER) | payer MEDICAID ==
[~2020-07-20] VITALS: Ht 190.5 cm; Wt 97.5 kg
[2020-07-20] MEDS ORDERED: SODIUM CHLORIDE 0.9% 1,000 ML IV ONE (14:15)
[2020-07-20 14:27] LABS: Urine Bacteria NONE SEEN /hpf (None Seen); Urine Blood Negative /uL (Negative); Urine Specific Gravity 1.004 (1.001-1.035); Urine WBC 1 /hpf (0 - 3)
[2020-07-20 14:58] LABS: Basophils # (auto) 0 10 ^3/uL (0-0.2); Basophils % (auto) 0.3 % (0.0-2.0); Eosinophils # (auto) 0.1 10 ^3/uL (0-0.8); Eosinophils % (auto) 1.2 % (0.0-7.0); Hematocrit 45.4 % (41.0-53.0); Hemoglobin 16.1 g/dL (13.5-17.5); Mean Corpuscular Hemoglobin 31.7 pg (28.0-32.0); Mean Corpuscular Hgb Conc. 35.5 g/dL (32.0-36.0); Mean Corpuscular Volume 89.1 fL (80.0-100.0); Monocytes # (auto) 0.6 10 ^3/uL (0-1.3); Monocytes % (auto) 6.7 % (0.0-12.0); Neutrophils # (auto) 7.4 10 ^3/uL (1.6-8.6); Neutrophils % (auto) 80.8 % (37.0-80.0); Nucleated Red Blood Cells % 0.1 %; Platelet Count (auto) 136 10^3/uL (140-450); Red Cell Distribution Width 14.8 % (11.8-14.3); White Blood Cell 9.2 10^3/uL (4.4-10.8)
[2020-07-20 15:15] LABS: Albumin 4.2 g/dL (3.4-5.0); Calcium 9.4 mg/dL (8.5-10.1); Potassium 3.4 mmol/L (3.5-5.1)
[2020-07-20 15:18] LABS: Bilirubin, Total 1.6 mg/dL (0.2-1.0); Total Protein 8.2 g/dL (6.4-8.2)
[2020-07-20 16:16] VITALS: BP 132/95
== END 2020-07-20 16:32 | disposition home or self-care (01) ==
LOC: ER 13:57
DX: M54.5 Low back pain (principal); F10.129 Alcohol abuse with intoxication, unspecified; F17.210 Nicotine dependence, cigarettes, uncomplicated; Z90.49 Acquired absence of other specified parts of digestive tract; Z88.6 Allergy status to analgesic agent; Y90.8 Blood alcohol level of 240 mg/100 ml or more
CPT/HCPCS: 36415; 74176; 80053; 81001; 85025; 96360; 99284; J7030

== ENCOUNTER 2020-12-25 10:56 | Emergency (ER) | payer MEDICAID ==
[~2020-12-25] VITALS: Ht 190.5 cm; Wt 99.8 kg
[2020-12-25] MEDS ORDERED: THIAMINE 100mg/ml INJ (200mg/2ml VIAL) IV ONE (11:15)
[2020-12-25] MEDS ORDERED: chlordiazePOXIDE HCL 25 MG CAP PO ONE (11:15)
[2020-12-25] MEDS ORDERED: AZITHROMYCIN 500MG/ 250ML 250 ML IV ONE ×2 (11:15→17:15)
[2020-12-25] MEDS ORDERED: cefTRIAXone 1GM/50ML D5W 50 ML IV ONE ×2 (11:15→17:15)
[2020-12-25 11:50] LABS: Eosinophils # (auto) 0 10 ^3/uL (0-0.8); Hemoglobin 16.7 g/dL (13.5-17.5); Neutrophils # (auto) 6.7 10 ^3/uL (1.6-8.6); Nucleated Red Blood Cells % 0.1 %; White Blood Cell 8.3 10^3/uL (4.4-10.8)
[2020-12-25 11:52] LABS: Basophils # (auto) 0.1 10 ^3/uL (0-0.2); Basophils % (auto) 0.8 % (0.0-2.0); Eosinophils % (auto) 0.5 % (0.0-7.0); Hematocrit 47.8 % (41.0-53.0); Lymphocytes # (auto) 0.8 10 ^3/uL (0.4-5.4); Lymphocytes % (auto) 10.3 % (10.0-50.0); Mean Corpuscular Hemoglobin 35.1 pg (28.0-32.0); Mean Corpuscular Hgb Conc. 34.9 g/dL (32.0-36.0); Mean Corpuscular Volume 100.4 fL (80.0-100.0); Monocytes # (auto) 0.6 10 ^3/uL (0-1.3); Monocytes % (auto) 7.9 % (0.0-12.0); Neutrophils % (auto) 80.5 % (37.0-80.0); Red Blood Cells 4.76 10^6/uL (4.5-5.90); Red Cell Distribution Width 19.4 % (11.8-14.3)
[2020-12-25 12:04] LABS: INR 1.08 (0.9-1.15); Partial Thromboplastin Time 28.2 sec (23.6-33.0)
[2020-12-25 12:17] LABS: Albumin 3.9 g/dL (3.4-5.0); Calcium 9.8 mg/dL (8.5-10.1)
[2020-12-25 12:21] LABS: Blood Alcohol < 3.0 mg/dL (0-5); CRP High Sensitivity 0.74 mg/dL (< 0.3)
[2020-12-25 12:46] LABS: BUN/Creatinine Ratio 10.4; Bilirubin, Total 3.2 mg/dL (0.2-1.0); Total Protein 8.4 g/dL (6.4-8.2)
[2020-12-25 12:55] LABS: Potassium 2.7 mmol/L (3.5-5.1)
[2020-12-25] MEDS ORDERED: PANTOPRAZOLE 40 MG/10 ML VIAL INJ IV ONE (14:45)
[2020-12-25] MEDS ORDERED: POTASSIUM EFFERVESENT TAB 25 MEQ PO ONE ×2 (14:45→17:15)
[2020-12-25] MEDS ORDERED: ONDANSETRON HCL 4 MG/2 ML VIAL IV ONE (14:45)
[2020-12-25 15:53] VITALS: BP 130/95
[2020-12-25] MEDS ORDERED: LORazepam 2MG/ML-1ML VIAL IV ONE (16:00)
== END 2020-12-25 17:35 | disposition home or self-care (01) ==
LOC: ER 10:56
DX: F10.239 Alcohol dependence with withdrawal, unspecified (principal); J40 Bronchitis, not specified as acute or chronic; E87.6 Hypokalemia; F17.210 Nicotine dependence, cigarettes, uncomplicated; Y90.0 Blood alcohol level of less than 20 mg/100 ml; Z90.89 Acquired absence of other organs; Z90.49 Acquired absence of other specified parts of digestive tract; Z20.822 Contact with and (suspected) exposure to COVID-19
CPT/HCPCS: 36415; 71045; 80053; 80320; 82728; 83880; 84484; 85025; 85610; 85730; 86141; 87426; 96365; 96375; 99284; C9113; J0696; J2060; J2405; J3411